=== PATIENT | female | born 1965 | race Caucasian/White ===

== ENCOUNTER → 2019-02-16 | Outpatient (CLI) | payer BC ==
--- NOTE | 2019-02-16 09:46 | Diagnostic Imaging Report ---
PROCEDURE: MRI lumbar spine. TECHNIQUE: Multiplanar, multisequence MRI of the lumbar spine was performed without contrast. INDICATION: Back pain. COMPARISON: There are no prior studies available for comparison. FINDINGS: On the coronal channeler insole images there is slight curvature of the lumbar spine, convex to the right. The T2 sagittal images show slight anterior translation of L5 with respect to S1 and L4. There is also mild narrowing and desiccation of the disc at both L4-L5 and L5-S1. At the L5-S1 level there is a disc bulge eccentric to the right. There is no evidence for central stenosis at this level but there is narrowing of the neural foramen on the right and there may be encroachment of the exiting right nerve root at L5-S1. There is no neural foraminal narrowing on the left at L5-S1. At the L4-L5 level there is a slight disc bulge centrally. The disc indents the ventral aspect of the thecal sac and narrows the AP diameter to approximately 11.6 mm. There is no significant neural foraminal narrowing at this level. The remainder of the lumbar spine is unremarkable for spinal stenosis or nerve root encroachment. There is no abnormal signal arising from the cord or other vertebral bodies to indicate an acute abnormality. There is no sign of a paraspinal mass. IMPRESSION: 1. There is a broad-based disc bulge to the right at L5-S1. While there is no evidence for central stenosis at this level there is narrowing of the neural foramen on the right and there may be encroachment of the exiting right nerve root. 2. The remainder of the lumbar spine is unremarkable for spinal stenosis or nerve root encroachment. 3. There is no sign of an acute bony abnormality or of a cord lesion. Dictated by: Dictated on workstation # [id number]
== END ==
LOC: RAD 08:46
PROVIDERS: ATTEND Physician Assistant
DX: M54.5 Low back pain (principal)
CPT/HCPCS: 72148